=== PATIENT | male | born 2000 | race Caucasian/White ===

== ENCOUNTER 2021-08-07 02:08 | Emergency (ER) | payer MEDICAID ==
[~2021-08-07] VITALS: Ht 172.7 cm; Wt 58.0 kg
[2021-08-07] MEDS ORDERED: MORPHINE SULFATE 4 MG/ML CPJ (NOT FOR IM USE) IV STA (02:38)
[2021-08-07] MEDS ORDERED: ONDANSETRON HCL 4MG/2ML INJ IV STA (02:38)
[2021-08-07] MEDS ORDERED: SODIUM CHLORIDE 0.9% 1,000 ML IV ONE (02:45)
[2021-08-07 03:21] LABS: CHLORIDE 104 mEq/L (98-107)
[2021-08-07] MEDS ORDERED: IBUP-2029 MT (06:02)
[2021-08-07] MEDS ORDERED: METH-653 MT (06:02)
[2021-08-07 06:05] VITALS: BP 135/67
[2021-08-07] MEDS ORDERED: IOHEXOL-300 100 ML BOTTLE ONE (06:41)
== END 2021-08-07 06:10 | disposition home or self-care (01) ==
LOC: ER 02:08
DX: S00.81XA Abrasion of other part of head, initial encounter (principal); S39.012A Strain of muscle, fascia and tendon of lower back, initial encounter; R51.9 Headache, unspecified; F12.10 Cannabis abuse, uncomplicated; V49.9XXA Car occupant (driver) (passenger) injured in unspecified traffic accident, initial encounter; Y93.89 Activity, other specified; Y92.89 Other specified places as the place of occurrence of the external cause; Y99.8 Other external cause status
CPT/HCPCS: 36415; 70450; 71045; 71260; 72125; 72170; 73552; 73590; 74177; 80048; 86850; 86900; 86901; 96361; 96374; 96375; 99285; J2270; J2405; J7030; Q9967; Z7610

== ENCOUNTER 2022-03-09 19:47 | Emergency (ER) | payer MEDICAID ==
[~2022-03-09] VITALS: Ht 170.2 cm; Wt 70.0 kg
[~2022-03-09 19:47] MED LIST: IBUP-2029 MT; METH-653 MT
[2022-03-09 19:50] VITALS: BP 104/54
[2022-03-09] MEDS ORDERED: ACETAMINOPHEN 325MG TABLET PO ONE (20:45)
[2022-03-09] MEDS ORDERED: IBUPROFEN 400MG TABLET PO ONE (20:45)
== END 2022-03-09 21:08 | disposition left against medical advice (07) ==
LOC: ER 19:47
DX: R55 Syncope and collapse (principal)
CPT/HCPCS: 99281